=== PATIENT | male | born 1970 | race Caucasian/White ===

== ENCOUNTER 2021-07-18 13:50 | Emergency (ER) | payer OTHER ==
[2021-07-18] MEDS ORDERED: NAPROXEN500 MG PO (15:16)
[2021-07-18] MEDS ORDERED: FLEXERIL5 MG PO (15:16)
== END 2021-07-18 16:11 | disposition home or self-care (01) ==
LOC: FER 13:50
DX: S16.1XXA Strain of muscle, fascia and tendon at neck level, initial encounter (principal); S39.012A Strain of muscle, fascia and tendon of lower back, initial encounter; I10 Essential (primary) hypertension; V43.52XA Car driver injured in collision with other type car in traffic accident, initial encounter; Y92.009 Unspecified place in unspecified non-institutional (private) residence as the place of occurrence of the external cause
CPT/HCPCS: 72125; 72131; 99283; J1885